=== PATIENT | male | born 1995 | race Caucasian/White ===

== ENCOUNTER 2017-06-25 21:44 | Emergency (ER) | payer OTHER ==
[2017-06-25 21:54] VITALS: BP 139/81; PULSE 85; RESP 16; TEMP 97.4; O2SAT 97
--- NOTE | 2017-06-25 22:51 | ED PDOC ---
HPI: Neurologic - General Time Seen by Provider: 06/25/17 21:57 Chief Complaint (Nursing): Weakness/Neurological Deficit - History of Present Illness Allergies/Adverse Reactions: Allergies No Known Allergies Allergy (Verified 06/25/17 21:47) Home Medications: Ambulatory Orders Erythromycin 0.5% [Ilytocin] 1 appl OD HS #1 tube 06/25/17 Non-Formulary 1 ea OD HS #1 ea 06/25/17 Polyethylene Glycol/Polyvinyl [Artificial Tears] 1 appl OD PRN PRN #1 bottle 02/01 Valacyclovir HCl [Valtrex] 1,000 mg PO TID #21 tablet 06/25/17 predniSONE [Prednisone] 60 mg PO DAILY 10 Days tab 06/25/17 Past Medical History Vital Signs: Last Vital Signs Temp 97.4 F L 06/25/17 21:50 Pulse 85 06/25/17 21:50 Resp 16 06/25/17 21:50 BP 139/81 06/25/17 21:50 Pulse Ox 97 06/25/17 21:50 - Home Medications Home Medications: Ambulatory Orders Medication Instructions Recorded Erythromycin 0.5% [Ilytocin] 1 appl OD HS #1 tube 06/25/17 Non-Formulary 1 ea OD HS #1 ea 06/25/17 Polyethylene Glycol/Polyvinyl 1 appl OD PRN PRN #1 bottle 06/25/17 [Artificial Tears] Valacyclovir HCl [Valtrex] 1,000 mg PO TID #21 tablet 06/25/17 predniSONE [Prednisone] 60 mg PO DAILY 10 Days tab 06/25/17 - Allergies Allergies/Adverse Reactions: Allergies Allergy/AdvReac Type Severity Reaction Status Date / Time No Known Allergies Allergy Verified 06/25/17 21:47 - ECG O2 Sat by Pulse Oximetry: 97 Disposition - Clinical Impression Clinical Impression: Lindo's palsy Counseled Patient/Family Regarding: Diagnosis, Need For Followup, Rx Given - Disposition Referrals: Katiuska Cruz [Outside] Disposition: Routine/Home Disposition Time: 22:46 Condition: GOOD Additional Instructions: FOLLOW UP WITH [facility] [employer] [facility] OR YOUR DOCTOR IN 1-2 WEEKS FOR REEVALUATION Prescriptions: Erythromycin 0.5% [Ilytocin] 1 appl OD HS #1 tube Non-Formulary 1 ea OD HS #1 ea Polyethylene Glycol/Polyvinyl [Artificial Tears] 1 appl OD PRN PRN #1 bottle PRN Reason: eye comfort predniSONE [Prednisone] 60 mg PO DAILY 10 Days tab Valacyclovir HCl [Valtrex] 1,000 mg PO TID #21 tablet Instructions: Lindo Palsy (ED) Forms: [facility] (Ecuadorean)
== END 2017-06-25 23:20 | disposition home or self-care (01) ==
LOC: H.ER 21:44
DX: G51.0 Bell's palsy (principal)
CPT/HCPCS: 96372; 99282; J2930